=== PATIENT | female | born 2000 | race Caucasian/White ===

== ENCOUNTER 2020-01-22 00:03 | Emergency (ER) | payer OTHER ==
[~2020-01-22] VITALS: Ht 160 cm; Wt 108.9 kg
[2020-01-22 03:45] VITALS: BP 132/70
== END 2020-01-22 04:30 | disposition home or self-care (01) ==
LOC: ER 00:03
DX: M25.512 Pain in left shoulder (principal); R51 Headache; V43.52XA Car driver injured in collision with other type car in traffic accident, initial encounter; Y93.89 Activity, other specified; Y92.89 Other specified places as the place of occurrence of the external cause; Y99.8 Other external cause status
CPT/HCPCS: 70450; 72125; 73030